=== PATIENT | female | born 1985 | race Caucasian/White ===

== ENCOUNTER 2016-10-19 17:49 | Outpatient (CLI) | payer MEDICAID ==
[~2016-10-19] VITALS: Ht 162.6 cm; Wt 88.9 kg
[2016-10-19 18:17] VITALS: BP 120/75; Ht 162.6 cm; Wt 88.9 kg
[2016-10-19] MEDS ORDERED: FOLI0.4T2 PO (18:19)
[2016-10-19] MEDS ORDERED: PREN1TAB17 PO (18:19)
--- NOTE | 2016-10-19 19:24 | RADRPT ---
PROCEDURE: US evaluation of placenta. CLINICAL INDICATION: Abdominal pain. Uncertain placenta location. TECHNIQUE: Multiple sonographic images of the gravid uterus were obtained utilizing arredondo-scale isela ging. Sagittal and transverse images were obtained. The images were reviewed on a PACS workstation . The placenta was evaluated. COMPARISON: No prior studies are available for comparison. FINDINGS: There is a single live intrauterine . heart rate is 154 beats per minute. Position is breech and placenta is anterior grade 1. There is no placenta previa or abruption. IMPRESSION: 1. Placenta is anterior grade 1 with no abruption or previa. 2. Position is breech. RPTAT: QQ .Samuel Luo MD, Date Time Electronically viewed and signed by .Samuel Luo MD, on 10/19/2016 19:23 .R/
--- NOTE | 2016-10-19 21:15 | PN ---
Date/Time of Note Date/Time of Note DATE: 10/19/16 TIME: 21:11 OB Subjective Subjective Subjective 31 yo P0 @ 24.4 wks, present w lower abdominal pain, worse when walking no ctx or bleeding or LOF, +FM OB Objective Objective Objective Nml VS Abdomen- gravid, n/t SVE- l/c/p FHT- 140's; reactive; no decels toco- no ctx Abdomen: WNL Heart Rate: 140's Decelerations: No Decelerations Varibility: Moderate Contractions on Admission: None OB Assessment/Plan Other Assessment: 31 yo P0 @ 24 wks presents w likely ligament vs muscular pain - reassuring status -cervix closed Other plan: d/c home f/u prn VANE ELLISON MD Oct 19, 2016 21:15
--- NOTE | 2016-10-19 21:20 | TRIAGE ---
OB Triage Datetime Report Generated by CPN: 10/19/2016 21:19 Datetime: 10/19/2016 20:46 Stage of : OB Triage Contraction Comments: Cuevitas removed. Pt up to change. Pain Assessment Comments: Pt continues to deny any pain. Datetime: 10/19/2016 20:45 Vaginal Exam Dilatation (cms): 0.0 Effacement (%): 0 Station: -4 Exam By: CHANDNI Vallecillo Vaginal Bleeding: None Cervix, Consistency: Firm Cervix, Position: Posterior Datetime: 10/19/2016 20:30 Labor Evaluation Frequency: NONE Monitor Mode: Palpation Pattern: Normal: <= 5 Contractions in 10 Minutes Resting Tone Cuevitas: Relaxed Datetime: 10/19/2016 19:30 Labor Evaluation Frequency: 0 Monitor Mode: External Pattern: Normal: <= 5 Contractions in 10 Minutes Heart Rate FHR Baseline Rate: 135 Monitor Mode: External US FHR Baseline Changes: No Baseline Change Variability: Moderate 6-25 bpm Decelerations: None Datetime: 10/19/2016 19:27 Stage of : OB Triage Temperature Route: Oral Pain Assessment Pain Scale: 0 Pain Presence: None/Denies Pain Type: N/A Pain Assessment Comments: Pt denies any further pain. States pain was a bilateral lower abdominal pressure only when ambulating. Datetime: 10/19/2016 19:26 Comments: Audible movement. EFM removed. Datetime: 10/19/2016 19:20 Assessment Type: Triage Maternal Assessment Level of Consciousness: Fully Conscious DTR's/Clonus: DTRs 2+; No Clonus Headache: Denies Blurred Vision: No Respiratory Effort: Unlabored; Regular Rhythm; Equal Expansion Breath Sounds, Left: Clear and Equal Breath Sounds, Right: Clear and Equal Nausea/Vomiting: Denies RUQ Epigastric Pain: Denies Facial Edema: None Fall Risk Assessment History of Falling: (0) No Secondary Diagnosis: (0) No Ambulatory Aid: (0) Bedrest/Nurse Assist IV Therapy: (0) No Gait: (0) Normal/Bedrest/Immobile Mental Status: (0) Oriented to Own Ability Fall Score: 0 Fall Risk Score Definition: No Risk: No action required Datetime: 10/19/2016 18:43 Time of Arrival: 10/19/2016 17:44 EGA: 24.4 Arrived By: Ambulatory Arrived From: Home Chief Complaint: abdominal pain Movement: Present Rupture of Membranes: Denies Vaginal Discharge: Denies Recent Sexual Intercouse: Denies Abdominal Trauma: Not Applicable Patient Complaints: Other Time Provider Notified: 10/19/2016 18:43 Provider Notified: Dr. Villaseñor Initial Plan: EFMx2 Datetime: 10/19/2016 18:21 Stage of : OB Triage Maternal Assessment Level of Consciousness: Fully Conscious DTR's/Clonus: DTRs 2+; No Clonus Headache: Denies Blurred Vision: No Respiratory Effort: Unlabored; Regular Rhythm; Equal Expansion Breath Sounds, Left: Clear and Equal Breath Sounds, Right: Clear and Equal Nausea/Vomiting: Denies RUQ Epigastric Pain: Denies Lower Extremities Edema: None Degree: None Upper Extremities Edema: None Degree: None Facial Edema: None Temperature Route: Oral Fall Risk Assessment History of Falling: (0) No Secondary Diagnosis: (0) No Ambulatory Aid: (0) Bedrest/Nurse Assist IV Therapy: (0) No Gait: (0) Normal/Bedrest/Immobile Mental Status: (0) Oriented to Own Ability Fall Score: 0 Fall Risk Score Definition: No Risk: No action required Labor Evaluation Frequency: 0 Monitor Mode: External Resting Tone Cuevitas: Relaxed Heart Rate FHR Baseline Rate: 135 Monitor Mode: External US Variability: Moderate 6-25 bpm Accelerations: 15X15 Decelerations: None Category: Category I Pain Assessment Pain Scale: 2 Pain Presence: Intermittent Pain Type: Crushing Pain Location: Abdomen
== END 2016-10-19 20:55 | disposition home or self-care (01) ==
LOC: OBT 17:49 → L-D 17:50 → OBT 20:55
PROVIDERS: ATTEND Obstetrics & Gynecology
DX: O26.892 Other specified pregnancy related conditions, second trimester (principal); R10.30 Lower abdominal pain, unspecified; Z3A.24 24 weeks gestation of pregnancy
CPT/HCPCS: 76815; Z7500; G0463

== ENCOUNTER 2017-02-03 20:20 | Outpatient (CLI) | payer MEDICAID ==
[~2017-02-03 20:20] MED LIST: FOLI0.4T2 PO; PREN1TAB17 PO
[2017-02-03 20:30] VITALS: BP 118/69; PULSE 90; RESP 18
--- NOTE | 2017-02-03 21:32 | RADRPT ---
PROCEDURE: US OB. CLINICAL INDICATION: Size and dates TECHNIQUE: Multiple sonographic images of the pelvis and gravid uterus were obtained. The images were reviewed on a PACS workstation. COMPARISON: 10/19/16 FINDINGS: There is a single viable intrauterine gestation. Cardiac activity is present with 159 beats per min dot. There is a vertex presentation. The placenta is anterior. There is no evidence for an abruption or placenta previa. There is a normal amount of amniotic fluid with an FRED = 9.7 cm. Measurements were made in order to determine age. The results are as follows: BPD =9.7 cm HC =34.5 cm AC =35.9 cm FL =7.8 cm Estimated gestational age of approximately 39 weeks and 6 days based on ultrasound measurements. Clinical age: 39 weeks and 6 days. The estimated date of delivery is 02/04/17, based on ultrasound measurements. The EFW = 3906 g, 75%, based on LMP age. RPTAT: AA IMPRESSION: Single viable intrauterine gestation of approximately 39 weeks and 6 days based on ultrasound measu rements. .Glynn Ochoa MD, MD Date Time Electronically viewed and signed by .Glynn Ochoa MD, MD on 02/03/2017 21:32 .S/
--- NOTE | 2017-02-03 22:08 | HP ---
Date/Time of Note Date/Time of Note DATE: 02/03/17 TIME: 22:03 OB - History Hx of Present Free Text/Dictation G1 at 39.6 weeks who obtains PNC at [facility]. she came to L&D because she is 39.6 weeks and she does not have any further appt at her clinic. she denies feeling contractions, she denies LOF per vagina or vaginal bleeding, she reports good FM. Care: Good Care Ultrasounds: Normal mid trimester US Obstetrical Complications: None Medical Complications: None Past Family/Social History * Past Medical, Surgical, Family and Obstetric Histories reviewed from chart. OB Admission Exam Vital Signs Vital Signs Vital Signs Date Time Temp Pulse Resp B/P Pulse Ox O2 Delivery O2 Flow Rate FiO2 02/03/17 20:30 99.6 90 18 118/69 Room Air Physical Exam HEENT: WNL Heart: Rhythm Normal Lungs: Clear, Equal Abdomen: WNL Extremities: Normal Reflexes: Normal Cervical Dilatation: None Effacement: 0% Station: -3 Membranes: Intact OB Assessment/Plan Other Assessment: she is not in Labor Dr. Villaseñor who is the attending physician was already contacted and he recommended d/c home. Other plan: I asked patient to make for PNC visit this week for f/u and to also consider making an appt for IOL. I also d/w pt the results of the sono with normal FRED and EFW 3906 gr KIERRA SALAZAR MD Feb 03, 2017 22:08
--- NOTE | 2017-02-03 22:19 | TRIAGE ---
OB Triage Datetime Report Generated by CPN: 02/03/2017 22:19 Datetime: 02/03/2017 20:42 Vaginal Exam Dilatation (cms): 0.0 Station: -4 Exam By: MB Vaginal Bleeding: None Cervix, Consistency: Firm Cervix, Position: Posterior Datetime: 02/03/2017 20:00 Time of Arrival: 02/03/2017 20:00 EGA: 39.6 Arrived By: Wheelchair Arrived From: Home Chief Complaint: pt. states she is here because tomorrow is her due date. No complaints of UC's Movement: Present Contractions: Denies/Absent Rupture of Membranes: Denies Vaginal Bleeding: None Vaginal Discharge: Denies Recent Sexual Intercouse: Denies Abdominal Trauma: Not Applicable Patient Complaints: Other Initial Plan: NST, SVE Datetime: 10/19/2016 20:35 Stage of : OB Triage Datetime: 10/19/2016 19:20 Stage of : OB Triage Fall Risk Assessment Fall Score: 0 Fall Risk Score Definition: No Risk: No action required Datetime: 10/19/2016 18:43 EGA: 24.4 Datetime: 10/19/2016 18:21 Fall Risk Assessment Fall Score: 0 Fall Risk Score Definition: No Risk: No action required
== END 2017-02-03 22:15 | disposition home or self-care (01) ==
LOC: OBT 20:20 → L-D 20:21 → OBT 22:15
PROVIDERS: ATTEND Obstetrics & Gynecology
DX: Z34.03 Encounter for supervision of normal first pregnancy, third trimester (principal)
CPT/HCPCS: 76815; Z7500; G0463

== ENCOUNTER 2017-02-08 19:08 | Outpatient (CLI) | payer MEDICAID ==
[~2017-02-08] VITALS: Ht 152.4 cm; Wt 96.4 kg
[2017-02-08 19:37] VITALS: Ht 152.4 cm; Wt 96.4 kg
[2017-02-08 19:38] VITALS: BP 106/56; PULSE 91; RESP 18
--- NOTE | 2017-02-08 20:49 | HP ---
Date/Time of Note Date/Time of Note DATE: 02/08/17 TIME: 20:47 OB - History Hx of Present Free Text/Dictation Pt is a 31yo G1 at 40+4 presenting from clinic for NST/BPP and EFW in the setting of late term . Pt denies c/o. Reports normal FM, denies LOF, VB or UCs. Does not have a date for IOL. PROCEDURE: US OB biophysical profile. CLINICAL INDICATION: Post dates TECHNIQUE: Multiple sonographic images of the pelvis were obtained. The images were reviewed on a PACS workstation. COMPARISON: No pertinent prior examinations were submitted for comparison. FINDINGS: There is a single viable intrauterine gestation. Cardiac activity is present with 174 beats per minute. There is a vertex presentation. The placenta is anterior. There is a normal amount of amniotic fluid with an FRED = 12.6 cm. Biophysical profile: movement 2/2 tone 2/2. breathing 2/2 FRED 2/2 Total 05/14 IMPRESSION: Normal biophysical profile. PROCEDURE: US OB. CLINICAL INDICATION: labor. TECHNIQUE: Multiple sonographic images of the pelvis were obtained. The images were reviewed on a PACS workstation. COMPARISON: OB sonogram 02/03/2017. FINDINGS: Cervical length was not evaluated. There is a single viable intrauterine gestation. Cardiac activity is present with 168 beats per minute. There is a cephalic presentation. Measurements were made in order to determine age. The results are as follows: BPD = 9.6 cm 39 weeks 2 days plus or minus 3 weeks 1 day. HC = 30 3.8 cm 38 weeks 5 days plus or minus 2 weeks 5 days. AC = 40 cm FL = 7.9 cm. 40 weeks 3 days plus or minus 3 weeks 1 day. Estimated gestational age of approximately 39 weeks 3 days plus or minus 2 weeks 5 days.. The estimated date of delivery is 02/12/2017. The EFW = 4543 g plus or minus 681.5 g. . anatomy is not evaluated. The placenta is anterior grade II. There is no evidence for an abruption or placenta previa. There is a normal amount of amniotic fluid with an FRED = not available. There are no adnexal masses.. IMPRESSION: Single viable intrauterine gestation of approximately 39 weeks 3 days plus or minus 2 weeks 5-day. The estimated date of delivery is 02/12/2017 . Estimated Due Date: February 04, 2017 : 1 Care: Good Care Obstetrical Complications: None OB Admission Exam Vital Signs Vital Signs Vital Signs Date Time Temp Pulse Resp B/P Pulse Ox O2 Delivery O2 Flow Rate FiO2 02/08/17 19:38 98.1 91 18 106/56 Physical Exam Cervical Dilatation: None Effacement: Other (70%) Station: -3 Membranes: Intact Heart Rate: 130's Accelerations: Accelerations Present Decelerations: No Decelerations Contractions on Admission: 6-10 Minutes Apart (q9 min) OB Assessment/Plan Other Assessment: Late Term Reassuring FWB EFW >4500g Other plan: Pt appropriate for d/c home. Encouraged to return to OB triage tomorrow to speak with primary OB regarding delivery plan. Pt amenable to this. Labor, ROM and FKC precautions reviewed. Questions answered to patient's satisfaction. ANGELIQUE DAY MD February 08, 2017 20:49
--- NOTE | 2017-02-08 21:38 | RADRPT ---
PROCEDURE: US OB. CLINICAL INDICATION: labor. TECHNIQUE: Multiple sonographic images of the pelvis were obtained. The images were reviewed on a PACS workstation. COMPARISON: OB sonogram 02/03/2017. FINDINGS: Cervical length was not evaluated. There is a single viable intrauterine gestation. Cardiac activity is present with 168 beats per min dot. There is a cephalic presentation. Measurements were made in order to determine age. The results are as follows: BPD =9.6 cm 39 weeks 2 days plus or minus 3 weeks 1 day. HC =30 3.8 cm38 weeks 5 days plus or minus 2 weeks 5 days. AC =40 cm FL =7.9 cm.40 weeks 3 days plus or minus 3 weeks 1 day. Estimated gestational age of approximately 39 weeks 3 days plus or minus 2 weeks 5 days.. The estimated date of delivery is 02/12/2017. The EFW = 4543 g plus or minus 681.5 g. . anatomy is not evaluated. The placenta is anterior grade II. There is no evidence for an abruption or placenta previa. There is a normal amount of amniotic fluid with an FRED = not available. There are no adnexal masses.. IMPRESSION: Single viable intrauterine gestation of approximately 39 weeks 3 days plus or minus 2 weeks 5-day. The estimated date of delivery is 02/12/2017 . RPTAT:AAJJ Physician Zeke Date Time Electronically viewed and signed by Physician Zeke on 02/08/2017 21:38 MITCH/
--- NOTE | 2017-02-08 21:40 | RADRPT ---
PROCEDURE: US OB biophysical profile. CLINICAL INDICATION: Post dates TECHNIQUE: Multiple sonographic images of the pelvis were obtained. The images were reviewed on a PACS workstation. COMPARISON: No pertinent prior examinations were submitted for comparison. FINDINGS: There is a single viable intrauterine gestation. Cardiac activity is present with 174 beats per min clark's point. There is a vertex presentation. The placenta is anterior. There is a normal amount of amniotic fluid with an FRED = 12.6 cm. Biophysical profile: movement 2/2 tone 2/2. breathing 2/2 FRED 2/2 Total 05/14 IMPRESSION: Normal biophysical profile. RPTAT: HIKT . .Todd Mcgovern MD, Date Time Electronically viewed and signed by .Todd Mcgovern MD, on 02/08/2017 21:40 .T/
== END 2017-02-08 22:05 | disposition home or self-care (01) ==
LOC: OBT 19:08 → L-D 19:09 → OBT 22:05
PROVIDERS: ATTEND Obstetrics & Gynecology
DX: O48.0 Post-term pregnancy (principal); O60.03 Preterm labor without delivery, third trimester; Z3A.40 40 weeks gestation of pregnancy
CPT/HCPCS: 76815; 76818; Z7500; G0463

== ENCOUNTER 2017-02-09 09:51 | Inpatient (IN) | payer MEDICAID ==
[~2017-02-09] VITALS: Ht 152.4 cm; Wt 92.3 kg
[2017-02-09 10:39] VITALS: Ht 152.4 cm; Wt 92.3 kg
[2017-02-09 10:43] VITALS: BP 103/60; PULSE 86; RESP 18
[2017-02-09] MEDS ORDERED: METHYLERGONOVINE 0.2 MG INJ IM PRN ×2 (11:00→18:00)
[2017-02-09] MEDS ORDERED: MISOPROSTOL 200 MCG TAB PR PRN ×2 (11:00→18:00)
[2017-02-09] MEDS ORDERED: CARBOPROST 250 MCG INJ IM PRN ×2 (11:00→18:00)
[2017-02-09 11:18] LABS: ADD SCAN DIFF NO
[2017-02-09] MEDS: LACTATED RINGER'S 1,000 ML IV SCH ×2 (11:23→18:47)
[2017-02-09 11:27] LABS: BASOPHILS % 0.4 % (0.0-2.0); EOSINOPHILS % 0.6 % (0.0-7.0); HEMATOCRIT 41.7 % (37.0-47.0); HEMOGLOBIN 14.1 g/dl (12.0-16.0); LYMPHOCYTES # 1.5 10^3/ul (0.8-2.9); LYMPHOCYTES % 21.7 % (15.0-51.0); MEAN CORPUSCULAR HEMOGLOBIN 30.9 pg (29.0-33.0); MEAN CORPUSCULAR HGB CONC 33.8 g/dl (32.0-37.0); MEAN CORPUSCULAR VOLUME 91.2 fl (82.0-101.0); MONOCYTE # 0.7 10^3/ul (0.3-0.9); MONOCYTES % 9.5 % (0.0-11.0); NEUTROPHIL # 4.6 10^3/ul (1.6-7.5); NEUTROPHILS % 67.1 % (39.0-77.0); PLATELET COUNT 251 10^3/UL (140-415); RED BLOOD COUNT 4.57 10^6/ul (4.20-5.40); RED CELL DISTRIBUTION WIDTH 13.7 % (11.5-14.5); WHITE BLOOD COUNT 6.9 10^3/ul (4.8-10.8)
[2017-02-09 11:42] LABS: INR 0.99; PROTIME 13.1 Sec (12.2-14.2)
[2017-02-09 11:47] LABS: PARTIAL THROMBOPLASTIN TIME 25.8 Sec (25.0-35.0)
[2017-02-09] MEDS ORDERED: LACTATED RINGER'S 1,000 ML IV ONE (12:00)
[2017-02-09] MEDS ORDERED: FENTAnyl 50 MCG/ML VIAL ONE (12:26)
[2017-02-09] MEDS ORDERED: morphine SULFATE/PF (10 MG/10 ML) INJ ONE (12:26)
[2017-02-09] MEDS ORDERED: DEXAMETHASONE 4 MG/ML 1 ML INJ ONE (12:31)
[2017-02-09] MEDS ORDERED: ONDANSETRON 4 MG INJ ONE (12:32)
[2017-02-09] MEDS ORDERED: PHENYLephrine (100 MCG/ML) 5ML SYG ONE (12:32)
[2017-02-09] MEDS: CLINDAMYCIN 900 MG/D5W (PMX) 50 ML IVPB SCH (12:45)
[2017-02-09] MEDS ORDERED: ONDANSETRON 4 MG INJ IV PRN (14:00)
[2017-02-09] MEDS ORDERED: ZOLPIDEM 5 MG TAB PO PRN (14:00)
[2017-02-09] MEDS ORDERED: NALOXONE (0.4 MG/ML) INJ IV PRN (14:00)
[2017-02-09] MEDS ORDERED: DIPHENHYDRAMINE 50 MG INJ IV PRN (14:00)
[2017-02-09] MEDS ORDERED: HYDROmorphONE 1 MG/ML SYG IV PRN ×2 (14:00)
[2017-02-09] MEDS ORDERED: KETOROLAC 30 MG INJ IV PRN (14:00)
[2017-02-09] MEDS: OXYTOCIN 30 UNITS/LR 500 ML IV PRN ×2 (14:24→15:19)
--- NOTE | 2017-02-09 14:41 | HP ---
Date/Time of Note Date/Time of Note DATE: 02/09/17 TIME: 14:22 OB - History Hx of Present Free Text/Dictation This is a 31 years old female 1 para 0 EDC of February 04, 2017 admitted to [facility] for induction of labor on clinical evaluation suspected large baby patient,s most recent ultrasound indicated estimated weight 4000 g plus the option of induction of labor with regard to the patient's height and size and risk of shoulder dystocia discussed with her patient declined induction and trial of labor requested delivery, complication of including but not limited to bowel bladder injury infection hemorrhage and hematoma patient decided on delivery Chief Complaint: Post due date admitted for induction of labor Estimated Due Date: February 04, 2017 : 1 Para: 0 Care: Limited Care Ultrasounds: Normal mid trimester US Medical Complications: None Past Family/Social History * Past Medical, Surgical, Family and Obstetric Histories reviewed from chart. Rubella: immune RPR/VDRL: Negative GBS Status: Negative HBsAG: Negative OB Admission Exam Vital Signs Vital Signs Vital Signs Date Time Temp Pulse Resp B/P Pulse Ox O2 Delivery O2 Flow Rate FiO2 02/09/17 10:43 98.0 86 18 103/60 Room Air Physical Exam HEENT: WNL Lungs: Clear, Equal Abdomen: WNL Extremities: Normal Cervical Dilatation: None Effacement: 25% Station: -3 Membranes: Intact Heart Rate: 130's Accelerations: Accelerations Present Decelerations: No Decelerations Varibility: Moderate Contractions on Admission: None (`) Last 72 hours Lab Results CBC & BMP 02/09/17 11:00 IFEANYI CHEATHAM MD February 09, 2017 14:35
--- NOTE | 2017-02-09 14:58 | OPR ---
DATE OF OPERATION: 02/09/2017 PREOPERATIVE DIAGNOSIS: Intrauterine at 40 weeks plus gestation, suspected large baby. Th e patient declined a trial of labor, requested operative delivery. POSTOPERATIVE DIAGNOSIS: Intrauterine at 40 weeks plus gestation, suspected large baby. Th e patient declined a trial of labor, requested operative delivery. OPERATION PERFORMED: Primary transverse low cervical section. SURGEON: Ifeanyi Villaseñor MD ELECTRONICS TECHNOLOGY INSTRUCTOR: Dr. Patricia Rosario ANESTHESIA: Spinal. ANESTHESIOLOGIST: Dr. Sandoval FINDINGS: Live baby girl with Apgars of 8 and 9. Baby weighed 4,295 grams. DETAILS OF THE PROCEDURE: Under satisfactory spinal anesthesia, the patient was prepped and draped and placed in the supine position, tilted to the left. A Pfannenstiel incision was made, carried th rough the subcutaneous tissue. Bleeders were brought under control with electrocautery. Fascia was incised to the length of the incision. Rectus muscle was divided in the midline. Peritoneum was e xposed, entered through a transverse incision. Exploration of abdomen, a gravid uterus at term, nor mal-appearing tubes and ovaries. A bladder flap was developed. A transverse incision was made in t he lower segment of the uterus. Amniotic sac ruptured. Clear amniotic fluid noted. A live baby gi rl was delivered from an unengaged vertex. Nasal oropharyngeal suction was performed. Baby was rajput ded to the team for immediate attention. The patient received 20 units of Pitocin. The pl acenta delivered manually intact. Uterine cavity was cleaned with a wet sponge and drainage was est ablished. Uterus was closed in 2 layers using Monocryl #1 in continuous fashion. Peritoneal cavity was irrigated with warm saline. Sponge, needle and instruments were reported to be correct. Abdom inal peritoneum was closed with 2-0 chromic catgut continuously. Rectus muscle was approximated wit h 3 interrupted 2-0 chromic catgut. Fascia was closed with #1 PDS in a continuous fashion. Subcuta neous tissue was approximated with interrupted 2-0 chromic catgut. Skin was closed with sekou. E stimated blood loss was 600 mL. Urine bag contained 200 mL of clear urine. Patient tolerated the p rocedure well, was transferred to the recovery room in good condition. Dictated By: IFEANYI KELLY/COMPA Conf#: [id number] [facility]#: [id number]
[2017-02-09] MEDS ORDERED: OXYTOCIN 30 UNITS/LR 500 ML IV SCH (15:30)
[2017-02-09 18:00] VITALS: BP 106/60; PULSE 92; RESP 18
[2017-02-09] MEDS ORDERED: ACETAMINOPHEN/CODEINE #3 TAB PO PRN (18:00)
[2017-02-09] MEDS ORDERED: CEFAZOLIN 1 GM/50 ML (PMX) 50 ML IVPB SCH (18:00)
[2017-02-09] MEDS ORDERED: LANOLIN 7 GM TUBE TOP PRN (18:00)
[2017-02-09] MEDS ORDERED: OXYCODONE/ACETAMINOPHEN (5/325) TAB PO PRN (18:00)
[2017-02-09] MEDS ORDERED: OXYTOCIN 30 UNITS/LR 500 ML IV PRN (18:00)
[2017-02-09 18:30] VITALS: BP 108/60; PULSE 92; RESP 18
[2017-02-09] MEDS: OXYTOCIN 30 UNITS/LR 500 ML IV SCH ×2 (18:37→23:52)
[2017-02-09 20:10] VITALS: BP 111/63; PULSE 95; RESP 19
[2017-02-09] MEDS: SENNA/DOCUSATE NA (8.6MG/50MG) TAB PO SCH (21:55)
[2017-02-10] VITALS: BP 93/55; PULSE 86; RESP 18
[2017-02-10] MEDS: LACTATED RINGER'S 1,000 ML IV SCH ×2 (02:47→08:40)
[2017-02-10 04:00] VITALS: BP 93/52; PULSE 80; RESP 18
[2017-02-10] MEDS: OXYTOCIN 30 UNITS/LR 500 ML IV SCH (04:35)
[2017-02-10 08:01] LABS: ADD SCAN DIFF NO
[2017-02-10 08:08] LABS: BASOPHILS % 0.2 % (0.0-2.0); EOSINOPHILS % 0.2 % (0.0-7.0); HEMATOCRIT 35.3 % (37.0-47.0); HEMOGLOBIN 11.6 g/dl (12.0-16.0); LYMPHOCYTES # 2.4 10^3/ul (0.8-2.9); MEAN CORPUSCULAR HEMOGLOBIN 30.4 pg (29.0-33.0); MEAN CORPUSCULAR HGB CONC 32.9 g/dl (32.0-37.0); MEAN CORPUSCULAR VOLUME 92.4 fl (82.0-101.0); MEAN PLATELET VOLUME 10.2 fl (7.4-10.4); MONOCYTE # 1.2 10^3/ul (0.3-0.9); MONOCYTES % 10.1 % (0.0-11.0); NEUTROPHIL # 8.4 10^3/ul (1.6-7.5); PLATELET COUNT 231 10^3/UL (140-415); RED BLOOD COUNT 3.82 10^6/ul (4.20-5.40); RED CELL DISTRIBUTION WIDTH 13.7 % (11.5-14.5); WHITE BLOOD COUNT 12.2 10^3/ul (4.8-10.8)
[2017-02-10 08:30] VITALS: BP 102/54; PULSE 74; RESP 20
[2017-02-10] MEDS: SENNA/DOCUSATE NA (8.6MG/50MG) TAB PO SCH ×2 (09:00→22:05)
[2017-02-10] MEDS: OXYCODONE/ACETAMINOPHEN (5/325) TAB PO PRN ×2 (14:01→19:10)
--- NOTE | 2017-02-10 15:54 | PN ---
Date/Time of Note Date/Time of Note DATE: 02/10/17 TIME: 15:53 OB Subjective Subjective Subjective Post day 1 Afebrile vital signs stable abdomen soft bowel sounds present incision uterus firm lochia moderate extremities normal ambulation recommended Laboratory Tests Test 02/10/17 07:32 White Blood Count 12.210^3/ul Red Blood Count 3.8210^6/ul Hemoglobin 11.6g/dl Hematocrit 35.3% Mean Corpuscular Volume 92.4fl Mean Corpuscular Hemoglobin 30.4pg Mean Corpuscular Hemoglobin Concent 32.9g/dl Red Cell Distribution Width 13.7% Platelet Count 82805^3/UL Mean Platelet Volume 10.2fl Neutrophils % 69.0% Lymphocytes % 20.0% Monocytes % 10.1% Eosinophils % 0.2% Basophils % 0.2% Nucleated Red Blood Cells % 0.0/100WBC Neutrophils # 8.410^3/ul Lymphocytes # 2.410^3/ul Monocytes # 1.210^3/ul Eosinophils # 0.010^3/ul Basophils # 0.010^3/ul Nucleated Red Blood Cells # 0.010^3/ul Current Medications Medications (Trade) Dose Ordered Sig/Edinson Route PRN Reason Start Time Stop Time Status Last Admin Dose Admin Lactated Ringer's 1,000 ml @ 125 mls/hr Q8H IV 02/09/17 10:47 02/10/17 08:40 Oxytocin/Lactated Ringer's 500 ml @ 0 mls/hr ONCE PRN IV For Hemorrhage Management 02/09/17 11:00 02/09/17 17:40 DC 02/09/17 15:19 Methylergonovine Maleate (Methergine) 0.2 mg ONCE PRN IM VAGINAL BLEEDING 02/09/17 11:00 02/09/17 17:44 DC Carboprost Tromethamine (Hemabate) 250 mcg ONCE PRN IM VAGINAL BLEEDING 02/09/17 11:00 02/09/17 17:43 DC 02/09/17 14:21 Misoprostol 1000 mcg 1,000 mcg ONCE PRN AR VAGINAL BLEEDING 02/09/17 11:00 02/09/17 17:44 DC Clindamycin HCl/ Dextrose 50 ml @ 50 mls/hr ONCE IVPB 02/09/17 11:00 02/09/17 11:59 DC 02/09/17 12:45 Lactated Ringer's (Lr) 1,000 ml @ 1,000 mls/hr Q1H ONCE IV 02/09/17 12:00 02/09/17 12:59 DC 02/09/17 12:29 Morphine Sulfate (Duramorph) 10 mg STK-MED ONCE .ROUTE 02/09/17 12:26 02/09/17 12:27 DC Fentanyl (Sublimaze) 100 mcg STK-MED ONCE .ROUTE 02/09/17 12:26 02/09/17 12:27 DC Dexamethasone (Decadron) 4 mg STK-MED ONCE .ROUTE 02/09/17 12:31 02/09/17 12:32 DC Ondansetron HCl (Zofran Inj) 4 mg STK-MED ONCE .ROUTE 02/09/17 12:32 02/09/17 12:33 DC Phenylephrine HCl (Tyrone-Synephrine Inj Syg) 500 mcg STK-MED ONCE .ROUTE 02/09/17 12:32 02/09/17 12:33 DC Naloxone HCl (Narcan) 0.1 mg Q2M PRN IV FOR RESP RATE 8 OR LESS 02/09/17 14:00 02/10/17 12:40 DC Ketorolac Tromethamine (Toradol) 30 mg Q6H PRN IV PAIN 02/09/17 14:00 02/10/17 12:40 DC 02/10/17 09:11 Hydromorphone HCl (Dilaudid) 0.2 mg Q3H PRN IV PAIN LEVEL 1-5 02/09/17 14:00 02/10/17 12:40 DC Hydromorphone HCl (Dilaudid) 0.4 mg Q3H PRN IV PAIN LEVEL 6-10 02/09/17 14:00 02/10/17 12:40 DC Diphenhydramine HCl (Benadryl) 25 mg Q6H PRN IV ITCHING 02/09/17 14:00 02/10/17 12:40 DC Ondansetron HCl (Zofran Inj) 4 mg Q6H PRN IV NAUSEA AND/OR VOMITING 02/09/17 14:00 02/10/17 12:40 DC Zolpidem Tartrate (Ambien) 5 mg HS MAY REPEAT X 1 PRN PO INSOMNIA 02/09/17 14:00 02/10/17 12:40 DC Miscellaneous Information Duramorph: .2 mg Spi... GIVEN XX 02/09/17 14:00 02/09/17 17:40 DC Oxytocin/Lactated Ringer's 500 ml @ 125 mls/hr Q4H IV 02/09/17 15:30 02/09/17 17:44 DC Acetaminophen/ Codeine Phosphate (Tylenol No.3) 1 tab Q4H PRN PO PAIN LEVEL 4-6 02/09/17 18:00 Acetaminophen/ Codeine Phosphate (Tylenol No.3) 2 tab Q4H PRN PO PAIN LEVEL 7-10 02/09/17 18:00 Oxycodone/ Acetaminophen (Percocet (5/ 325)) 1 tab Q4H PRN PO PAIN LEVEL 4-6 02/09/17 18:00 Oxycodone/ Acetaminophen (Percocet (5/ 325)) 2 tab Q4H PRN PO PAIN LEVEL 7-10 02/09/17 18:00 02/10/17 14:01 Ibuprofen (Motrin) 600 mg Q6 PO 02/10/17 18:00 Simethicone (Mylicon) 160 mg Q8H PRN PO DISTENSION/GAS/BLOATING 02/09/17 18:00 Senna/Docusate Sodium (Senokot-S) 1 tab BID PO 02/09/17 21:30 02/09/17 21:55 Lanolin (Zex-P-Qkmkaz) 1 applic BEDSIDE MEDICATION PRN TOP BEDSIDE FOR ABEL TO NIPPLES 02/09/17 18:00 02/09/17 18:38 Diphtheria/ Tetanus/Acell Pertussis 0.5 ml 0.5 ml ONCE ONCE IM* 02/12/17 09:00 02/12/17 09:01 Oxytocin/Lactated Ringer's 500 ml @ 0 mls/hr ONCE PRN IV For Hemorrhage Management 02/09/17 18:00 Methylergonovine Maleate (Methergine) 0.2 mg ONCE PRN IM VAGINAL BLEEDING 02/09/17 18:00 Carboprost Tromethamine (Hemabate) 250 mcg ONCE PRN IM VAGINAL BLEEDING 02/09/17 18:00 Misoprostol 1000 mcg 1,000 mcg ONCE PRN AR VAGINAL BLEEDING 02/09/17 18:00 Cefazolin Sodium 50 ml @ 100 mls/hr ONCE IVPB 02/09/17 18:00 02/09/17 18:29 DC 02/09/17 18:37 Oxytocin/Lactated Ringer's 500 ml @ 125 mls/hr Q4H IV 02/09/17 17:36 02/10/17 04:35 IFEANYI CHEATHAM MD February 10, 2017 15:54
[2017-02-10 17:00] VITALS: BP 96/50; PULSE 76; RESP 18
[2017-02-10] MEDS: IBUPROFEN 600 MG TAB PO SCH (18:19)
[2017-02-10 19:40] VITALS: BP 98/56; PULSE 74; RESP 19
[2017-02-10] MEDS: ACETAMINOPHEN/CODEINE #3 TAB PO PRN (22:10)
[2017-02-11] MEDS: IBUPROFEN 600 MG TAB PO SCH ×4 (00:20→17:34)
[2017-02-11 04:10] VITALS: BP 98/54; PULSE 74; RESP 18
[2017-02-11 08:00] VITALS: BP 102/61; PULSE 78; RESP 18
[2017-02-11] MEDS: SENNA/DOCUSATE NA (8.6MG/50MG) TAB PO SCH ×2 (09:56→20:40)
[2017-02-11] MEDS: ACETAMINOPHEN/CODEINE #3 TAB PO PRN ×2 (09:56→20:41)
[2017-02-11 16:03] VITALS: BP 108/70; PULSE 74; RESP 16
--- NOTE | 2017-02-11 16:56 | PN ---
Date/Time of Note Date/Time of Note DATE: 02/11/17 TIME: 16:54 OB Subjective Subjective Subjective Post date vital signs stable abdomen soft incision dry lochia moderate bowel sounds present no bowel movement fleets enema recommended IFEANYI CHEATHAM MD February 11, 2017 16:56
[2017-02-11] MEDS ORDERED: NA PHOSPHATE/BIPHOS 133 ML ENEMA PR ONE (17:00)
[2017-02-11 19:45] VITALS: BP 104/63; PULSE 78; RESP 19
[2017-02-11] MEDS: OXYCODONE/ACETAMINOPHEN (5/325) TAB PO PRN (23:17)
[2017-02-12 04:00] VITALS: BP 101/64; PULSE 87; RESP 20
[2017-02-12] MEDS: IBUPROFEN 600 MG TAB PO SCH ×3 (05:52→11:51)
[2017-02-12 08:15] VITALS: BP 113/77; PULSE 94; RESP 18
[2017-02-12] MEDS: SENNA/DOCUSATE NA (8.6MG/50MG) TAB PO SCH (08:39)
[2017-02-12] MEDS: OXYCODONE/ACETAMINOPHEN (5/325) TAB PO PRN (08:39)
[2017-02-12] MEDS ORDERED: DIPHTH/TET/ACEL PERTUSS (ADULT) 0.5 ML VIAL IM* ONE (09:00)
== END 2017-02-12 19:06 | disposition home or self-care (01) | DRG 766 ==
LOC: OBT 09:51 → L-D 09:56 → PP1 17:27
PROVIDERS: ADMIT Obstetrics & Gynecology; ATTEND Obstetrics & Gynecology
PROC: 10D00Z1 Extraction of Products of Conception, Low, Open Approach (ICD-10-PCS; principal; 2017-02-09 13:15)
DX: O48.0 Post-term pregnancy (principal); E66.9 Obesity, unspecified; O99.214 Obesity complicating childbirth; Z68.39 Body mass index [BMI] 39.0-39.9, adult; Z37.0 Single live birth; Z3A.40 40 weeks gestation of pregnancy
CPT/HCPCS: 85025; 85610; 85730; 86592; 86850; 86885; 86900; 86901; 87340; 90715; 94760; 99464; J0690; J1100; J1885; J2274; J2370; J2405; J2590; J2790; J3010; J7120

== ENCOUNTER 2019-07-20 20:15 | Outpatient (CLI) | payer MEDICAID ==
[~2019-07-20] VITALS: Ht 157.5 cm; Wt 105.2 kg
[~2019-07-20 20:15] MED LIST changes: +FERR256T PO; +FOLI-49 PO; -FOLI0.4T2 PO; +NOVO7030 SC
[2019-07-20 20:21] VITALS: BP 103/57; PULSE 90; RESP 17; Ht 157.5 cm; Wt 105.2 kg
== END 2019-07-20 23:30 | disposition home or self-care (01) ==
LOC: OBT 20:15 → L-D 20:16 → OBT 23:30
PROVIDERS: ATTEND Obstetrics & Gynecology
DX: O24.410 Gestational diabetes mellitus in pregnancy, diet controlled (principal); O34.219 Maternal care for unspecified type scar from previous cesarean delivery; Z3A.37 37 weeks gestation of pregnancy
CPT/HCPCS: 76815; Z7500; G0463

== ENCOUNTER 2019-07-23 06:25 | Outpatient (CLI) | payer MEDICAID ==
[~2019-07-23] VITALS: Ht 152.4 cm; Wt 104.4 kg
[2019-07-23 06:34] VITALS: BP 106/60; PULSE 86; RESP 18; Ht 152.4 cm; Wt 104.4 kg
== END 2019-07-23 09:40 | disposition home or self-care (01) ==
LOC: OBT 06:25 → L-D 06:25 → OBT 09:40
PROVIDERS: ATTEND Obstetrics & Gynecology
DX: O24.410 Gestational diabetes mellitus in pregnancy, diet controlled (principal); O09.523 Supervision of elderly multigravida, third trimester; Z3A.38 38 weeks gestation of pregnancy
CPT/HCPCS: 76815; 82962; Z7500; G0463

== ENCOUNTER 2019-07-27 08:36 | Outpatient (CLI) | payer MEDICAID ==
[~2019-07-27] VITALS: Ht 152.4 cm; Wt 103.4 kg
[2019-07-27 08:49] VITALS: BP 101/57; PULSE 94; RESP 18
== END 2019-07-27 10:38 | disposition home or self-care (01) ==
LOC: OBT 08:36 → L-D 08:36 → OBT 10:38
PROVIDERS: ATTEND Obstetrics & Gynecology
DX: O24.410 Gestational diabetes mellitus in pregnancy, diet controlled (principal); O09.513 Supervision of elderly primigravida, third trimester; Z3A.38 38 weeks gestation of pregnancy
CPT/HCPCS: 76818; 82962; Z7500; G0463